=== PATIENT | male | born 1995 | race African-American/Black ===

== ENCOUNTER 2022-07-23 10:35 | Emergency (ER) | payer BC, OTHER ==
[~2022-07-23] VITALS: Ht 165.1 cm; Wt 45.4 kg
--- NOTE | 2022-07-23 11:02 | NUR ---
XRAY AT BEDSIDE
[2022-07-23] MEDS ORDERED: IBUP-1955 PO (11:27)
--- NOTE | 2022-07-23 11:34 | NUR ---
EMT at bedside for evelia wrap application
[2022-07-23 11:41] VITALS: BP 121/62
--- NOTE | 2022-07-23 11:41 | NUR ---
Patient discharged to home in stable condition. Written and verbal after care instructions given. Patient verbalizes understanding of instruction.
== END 2022-07-23 11:42 | disposition home or self-care (01) ==
LOC: ER 10:42
DX: S93.691A Other sprain of right foot, initial encounter (principal); J45.909 Unspecified asthma, uncomplicated; W50.1XXA Accidental kick by another person, initial encounter; Y93.75 Activity, martial arts; Y92.89 Other specified places as the place of occurrence of the external cause; Y99.8 Other external cause status
CPT/HCPCS: 73630-TC

== ENCOUNTER 2022-09-05 10:44 | Emergency (ER) | payer MEDICAID ==
[~2022-09-05] VITALS: Ht 167.6 cm; Wt 49.0 kg
[~2022-09-05 10:44] MED LIST: IBUP-1955 PO
--- NOTE | 2022-09-05 10:50 | NUR ---
R FOOT PAIN X 3 MONTHS, CAME IN WALKING WITH CRUTCHES
--- NOTE | 2022-09-05 11:23 | NUR ---
DR DO AT BED SIDE
--- NOTE | 2022-09-05 12:22 | NUR ---
went ama, left his phone number [phone]
[2022-09-05 12:26] VITALS: BP 120/77; TEMP 98.6; O2SAT 100
== END 2022-09-05 12:27 | disposition home or self-care (01) ==
LOC: ER 10:54
DX: S93.691A Other sprain of right foot, initial encounter (principal); M21.41 Flat foot [pes planus] (acquired), right foot; J45.909 Unspecified asthma, uncomplicated; Z79.899 Other long term (current) drug therapy; X58.XXXA Exposure to other specified factors, initial encounter; Y93.89 Activity, other specified; Y92.89 Other specified places as the place of occurrence of the external cause; Y99.8 Other external cause status
CPT/HCPCS: 73630-TC